=== PATIENT | male | born 1955 | race African-American/Black ===

== ENCOUNTER 2021-08-04 05:35 | Day surgery (SDC) | payer OTHER ==
[~2021-08-04 05:35] MED LIST: CYCLOBENZAPRINE5 MG PO; PROSCAR5 MG PO; TAMS0.4C PO
[2021-08-04] MEDS ORDERED: COLACE100 MG PO (11:01)
[2021-08-04] MEDS ORDERED: ULTRACET PO (11:01)
== END 2021-08-04 17:10 | disposition home or self-care (01) ==
LOC: CIR.AMB 05:35
PROVIDERS: ATTEND Surgery
DX: K64.8 Other hemorrhoids (principal); Z20.822 Contact with and (suspected) exposure to COVID-19